=== PATIENT | male | born 1970 | race Caucasian/White ===

== ENCOUNTER 2016-12-10 18:41 | Emergency (ER) | payer SELFPAY ==
[~2016-12-10] VITALS: Wt 113.4 kg
[~2016-12-10 18:41] MED LIST: BACTRIM DS 8001 TA1 PO; BP MED PO; DAYPRO600 M1 PO; FLEXERIL10 MG PO; NAPROSYN500 MG PO; NKHM; NORCO 325 MG-51 TAB PO; PARAFON FORTE500 MG PO; TRAMADOL HCL50 MG PO; ULTRAM50 MG PO; ZYRTEC10 M2 PO
[2016-12-10 19:08] LABS: HEMATOCRIT 37.8 % (42.0-52.0); HEMOGLOBIN 12.7 g/dl (14.0-18.0); MEAN CORPUSCULAR HGB 31.9 pg (27.0-31.0); MEAN CORPUSCULAR HGB CONC 33.6 g/dl (33.0-37.0); MEAN PLATELET VOLUME 8.9 fl (9.6-12.3); PLATELET COUNT AUTOMATED 235 10*3/uL (130-400); RED BLOOD COUNT 3.98 10*6/uL (4.50-5.90); RED CELL DISTRI WIDTH 12.3 % (0-14.5); WHITE BLOOD COUNT 5.4 10*3/uL (4.8-10.8)
[2016-12-10] MEDS ORDERED: HYDRALAZINE10 MG PO (19:13)
[2016-12-10 19:23] LABS: INTERNATIONAL NORM RATIO 1.1 (2.0-3.5); PROTHROMBIN TIME 11.4 SECONDS (9.0-12.4)
[2016-12-10 19:27] LABS: ALBUMIN 3.3 gm/dl (3.1-4.5); ALKALINE PHOSPHATASE 72 U/L (45-117); BILIRUBIN, TOTAL 0.3 mg/dl (0.2-1.0); BUN 10 mg/dl (7-24); CARBON DIOXIDE 24 mmol/L (21-32); CHLORIDE 104 mmol/L (98-107); CPK 270 U/L (39-308); EST GLOM FILT AFRICAN AMERICAN > 60 ml/min; GLUCOSE 86 mg/dL (65-99); MAGNESIUM 2.2 mg/dL (1.5-2.1); POTASSIUM 3.8 mmol/L (3.5-5.1); SGOT/AST 42 IU/L (3-35); SGPT/ALT 43 U/L (12-78); SODIUM 140 mmol/L (136-145); TOTAL PROTEIN 8.2 gm/dL (6.4-8.2)
[2016-12-10 19:28] LABS: CKMB 3.9 ng/ml (0.5-3.6)
[2016-12-10 19:31] LABS: TROPONIN I < 0.015 ng/ml (<0.045)
[2016-12-10 19:32] LABS: BASOPHIL # 0.1 10*3/uL (0-0.1); BASOPHILS 1 % (0-1); LYMPHOCYTE # 1.6 10*3/uL (1.3-4.4); MONOCYTE # 0.5 10*3/uL (0.1-1.0); NEUTROPHIL # 3.3 10*3/uL (2.3-7.9); NEUTROPHILS 61 % (47-73); TOTAL CELLS COUNTED 100 #CELLS
[2016-12-10 19:33] LABS: PLATELET SUFFICIENCY NORMAL (NORMAL)
[2016-12-10] MEDS ORDERED: PROTONIX40 MG PO (21:27)
[2016-12-10] MEDS ORDERED: BENTYL10 MG PO (21:27)
== END 2016-12-10 21:30 | disposition home or self-care (01) ==
LOC: ED 18:41
PROVIDERS: Emergency Medicine
DX: K29.00 Acute gastritis without bleeding (principal); Z88.0 Allergy status to penicillin

== ENCOUNTER 2017-07-30 14:53 | Emergency (ER) | payer OTHER ==
[~2017-07-30] VITALS: Ht 190.5 cm; Wt 108.9 kg
[~2017-07-30 14:53] MED LIST changes: +BENTYL10 MG PO; +HYDRALAZINE10 MG PO; +PROTONIX40 MG PO
[2017-07-30] MEDS ORDERED: CYCLOBENZAPRINE5 M3 PO (16:54)
[2017-07-30] MEDS ORDERED: Motrin,Rufen800 MG PO (16:54)
== END 2017-07-30 19:31 | disposition home or self-care (01) ==
LOC: ED 14:53
DX: S39.012A Strain of muscle, fascia and tendon of lower back, initial encounter (principal); Z98.890 Other specified postprocedural states; Z79.899 Other long term (current) drug therapy; Z88.0 Allergy status to penicillin; X50.1XXA Overexertion from prolonged static or awkward postures, initial encounter; Y93.E9 Activity, other interior property and clothing maintenance; Y92.009 Unspecified place in unspecified non-institutional (private) residence as the place of occurrence of the external cause; Y99.9 Unspecified external cause status

== ENCOUNTER → 2018-08-05 | Outpatient (CLI) | payer BC ==
[~2018-08-05] MED LIST changes: +ANTIBIOTIC; +CEFTRIAXON2 GM/50 ML IV; +CYCLOBENZAPRINE5 M3 PO; +FISH OIL CONC1000 M1 PO; +HYDROCODONE-AC1 EAC1 PO; +Motrin,Rufen800 MG PO; +PRILOSEC20 M1 PO; +VITAMIN D5000 UNIT PO
== END | disposition home or self-care (01) ==
LOC: RAD 09:21
DX: M86.8X7 Other osteomyelitis, ankle and foot (principal)

== ENCOUNTER → 2018-08-12 | Outpatient (CLI) | payer BC | END | disposition home or self-care (01) | LOC: WOUNDCARE 04:46 | DX: L89.892 Pressure ulcer of other site, stage 2 (principal); M86.372 Chronic multifocal osteomyelitis, left ankle and foot; M86.472 Chronic osteomyelitis with draining sinus, left ankle and foot; I10 Essential (primary) hypertension; K21.9 Gastro-esophageal reflux disease without esophagitis ==

== ENCOUNTER → 2018-08-14 | Outpatient (CLI) | payer BC | END | disposition home or self-care (01) | LOC: WOUNDCARE 15:36 | DX: L97.524 Non-pressure chronic ulcer of other part of left foot with necrosis of bone (principal); M86.372 Chronic multifocal osteomyelitis, left ankle and foot; M86.472 Chronic osteomyelitis with draining sinus, left ankle and foot; I10 Essential (primary) hypertension; K21.9 Gastro-esophageal reflux disease without esophagitis ==

== ENCOUNTER 2018-08-19 12:30 | Inpatient (IN) | payer BC ==
[~2018-08-19] VITALS: Ht 190.5 cm; Wt 121.7 kg
--- NOTE | ~2018-08-19 | O ---
[place], [place] OPERATIVE NOTE NAME: TY MCKEE III [facility] #: [id number] UNIT #: [id number] ROOM: 407 DOCTOR: ALONZO MACHADO DPM BIRTHDATE: [birth year] DOS: 08/20/2018 PREOPERATIVE DIAGNOSIS: Abscess, first left toe, possible osteomyelitis. POSTOPERATIVE DIAGNOSIS: Abscess, first left toe osteomyelitis, possible osteomyelitis, pending pathology. PROCEDURES: Incision and drainage, first left toe with bone biopsy, left hallux. SURGEON: Alonzo Machado DPM. BLOCK FEEDER: Marvin Figueroa DPM. BLOOD LOSS: Approximately 2 mL. PACKING: Half inch plain packing. ANESTHESIA: LMAC. INTERIM NOTE: The patient was seen preoperatively, discussed the surgery consisting of incision and drainage with bone biopsy of the left hallux. Discussed with the patient potential risks and complications including but not limited to over correction, under correction, recurrence of deformity, possible future amputation, future need for further surgical intervention, IV antibiotics, numbness, loss of function of the toe, etc. The patient understood. All questions were answered. The consent was signed and the patient will proceed with surgical intervention. DESCRIPTION OF PROCEDURE: The patient was brought to the operating room and placed on the operating table in supine position. Anesthesia was administered per Anesthesia Department. A 4 mL of 0.5% Marcaine plain was utilized for local block. The left lower extremity was prepped and draped in usual aseptic manner. Attention was directed to ulceration of medial left hallux where there was an open seeping wound. At this time, a 15 blade was utilized to linearly incise the area, approximately 2 cm in length. The incision was deepened via sharp and blunt dissection, avoiding neurovascular structures in the area. There was serous bloody drainage noted. The incision was carried to the level of the bone at the base of the distal phalanx of the left hallux. At this time, Jamshidi needle and rongeur were utilized to obtain bone specimens for bone cultures including aerobic, anaerobic, acid fast and fungal cultures along with Gram stain and additionally bone for bone biopsy to be sent to pathology. The tissue cultures were also ordered of the same orders with a specimen of soft tissue. The area was flushed with saline. Next, the area was dressed with half inch plain packing, wet to dry dressing with 4 x 4s, Kerlix and Carlyle bandage. The patient tolerated the procedure and anesthesia well and left the OR with vital signs stable and neurovascular status intact. Blood loss was approximately 2 mL total. The patient will return to the nursing unit, resume previous orders and we will follow the patient accordingly. I discussed with the patient and his . He will probably need 6 weeks of IV antibiotics, but we will determine [place], [place] OPERATIVE NOTE NAME: RYLEE MALATY Celestino UNIT #: [id number] ROOM: 407 DOCTOR: ALONZO MACHADO DPM BIRTHDATE: [birth year] with Infectious Disease depending on results of cultures and bone biopsy. ALONZO MACHADO DPM CM:OPRECORD:OPERATIVE NOTE [id number] ALONZO MACHADO DPM 08/24/18 0716 interface
--- NOTE | ~2018-08-19 | PR ---
[place], [place] PROGRESS NOTE NAME: TY MCKEE III [facility] #: [id number] UNIT #: [id number] ROOM: 407 DOCTOR: TONO SIDHU DPM BIRTHDATE: [birth year] DOS: 08/21/2018 SUBJECTIVE: This patient is seen one day status post I and D of abscess, left great toe with bone biopsy. He states he is feeling well. He does have some mild pain in the foot. Denies fever or chills. The patient denies being diabetic. He states overall he is feeling fine. OBJECTIVE: EXTREMITIES: Dressing is removed. Pedal pulses are palpable. Hair growth is present. Skin temperature is warm. Sensation is minimally decreased. There is an I and D site with incision noted at the medial IPJ of the left great toe, it is clean and granular with no purulent drainage or malodor. There is some edema and erythema about the toe, but very minimal at this time. No increased temperature, no fluctuance or signs of remaining abscess. Wound is clean. ASSESSMENT: One day status post I and D of abscess with bone biopsy, left great toe. PLAN: Packing and dressing is changed. Await return of the cultures and pathology. The patient is doing well one day postop and he will be followed tomorrow for reevaluation. TONO SIDHU DPM CM:PNTRANS [id number] TONO SIDHU DPM 08/21/18 2225 interface
--- NOTE | ~2018-08-19 | PR ---
[place], [place] PROGRESS NOTE NAME: TY MCKEE III [facility] #: [id number] UNIT #: [id number] ROOM: 407 DOCTOR: REGINA WELLSREBECCA BIRTHDATE: [birth year] DOS: 08/22/2018 SUBJECTIVE: The patient is a 48-year-old male who is being followed for likely toe osteomyelitis. He is status post I and D and bone biopsy on 08/20/2018. Admitting cultures thus far are growing Staph aureus, which is oxacillin sensitive. The operative cultures from 08/20/2018 are also growing Staph aureus, which is oxacillin sensitive. He had a longstanding chronic ulcer. He is tolerating the antibiotics. Denies fever, chills, nausea, vomiting or diarrhea. No rash or itch. No cough, shortness of breath, no pain in the foot except with dressing changes. Dressing changes were done as per Podiatry. No fevers or chills. OBJECTIVE: VITAL SIGNS: Temperature 98.3, pulse 67, respirations 18, BP 128/84. LABORATORY DATA: No new labs today. Cultures as reviewed above. All blood cultures are sterile. CURRENT MEDICATIONS: Rocephin, Lovenox, [place], vancomycin. PHYSICAL EXAMINATION: GENERAL: A 48-year-old male, in no acute distress. HEENT: Normocephalic, no thrush. LUNGS: Clear to auscultation bilaterally. Respirations even and unlabored. HEART: Regular rhythm. No murmur appreciated. ABDOMEN: Soft, nondistended. EXTREMITIES: No edema. Left foot dressing dry and intact. Left arm PICC dressed. No phlebitis. ASSESSMENT: Left great toe osteomyelitis and septic arthritis, status post incision and drainage and bone biopsy on 08/20/2018. On 08/19/2018, cultures with MSSA as well as bone biopsy cultures with MSSA. PLAN: Continue to treat for 6 weeks with IV antibiotics, currently on vancomycin and Rocephin could possibly narrow considering the sensitivity of the Staph aureus. ADDENDUM I agree with the assessment and plan made by the nurse practitioner, Rebecca Tapia. I reviewed the labs and imaging and made the necessary changes in the note. REBECCA TAPIA CNP [place], [place] PROGRESS NOTE NAME: RYLEE MEDEIROSTY Celestino UNIT #: [id number] ROOM: 407 DOCTOR: REGINA WELLS BIRTHDATE: [birth year] Debbie MD Maite CM:PNVETO [id number] DECEMBER REGINA WELLS 08/25/18 0505 interface
--- NOTE | ~2018-08-19 | PR ---
[place], [place] PROGRESS NOTE NAME: TY MCKEE III [facility] #: [id number] UNIT #: [id number] ROOM: 407 DOCTOR: IHSAN MACHADO DPM BIRTHDATE: [birth year] DOS: 08/22/2018 SUBJECTIVE: The patient is seen postop day 2 of incision and drainage, left hallux with bone biopsy. The patient is resting comfortably in bed. OBJECTIVE: Upon removal of the dressing and packing, there are no signs of purulence. Decreased erythema. No signs of acute complication. Negative Homans sign. ASSESSMENT: Post incision and drainage with bone biopsy, left hallux. PLAN: Packing and dressing changes visit continue daily. The patient is set up for IV antibiotic treatment with Infectious Disease. The patient stated that he needs to return to work Friday. Discussed with the patient this will be against my medical advice that the patient needs to stay off his foot. Otherwise, he is at increased risk for worsening of the condition and possibly losing his toe or foot. The patient stated he understood what I was communicating to him. We will follow with the patient tomorrow. IHSAN MACHADO DPM CM:GARRY [id number] [phone] IHSAN MACHADO DPM 08/22/182031 interface
[~2018-08-19 12:30] MED LIST changes: -ANTIBIOTIC; -FISH OIL CONC1000 M1 PO; -PRILOSEC20 M1 PO; -VITAMIN D5000 UNIT PO
[2018-08-19 12:31] VITALS: BP 137/92
[2018-08-19 13:49] LABS: BASO % 0.4 % (0.0-1.0); EOS # 0.1 10*3/uL (0.0-0.4); EOS % 1.7 % (1.0-4.0); HEMATOCRIT 46.5 % (42.0-52.0); HEMOGLOBIN 15.4 g/dl (14.0-18.0); LYMPH # 1.8 10*3/uL (1.3-4.4); LYMPH % 23.5 % (27.0-41.0); MEAN CELL VOLUME 96.5 fl (80.0-94.0); MEAN CORPUSCULAR HGB CONC 33.1 g/dl (33.0-37.0); MEAN PLATELET VOLUME 9.3 fl (9.6-12.3); MONO # 0.6 10*3/uL (0.1-1.0); MONO % 7.6 % (3.0-9.0); NEUT # 5.2 10*3/uL (2.3-7.9); NEUT % 66.5 % (47.0-73.0); PLATELET COUNT AUTOMATED 239 10*3/uL (130-400); RED BLOOD COUNT 4.82 10*6/uL (4.50-5.90); RED CELL DISTRI WIDTH 11.6 % (0-14.5); WHITE BLOOD COUNT 7.8 10*3/uL (4.8-10.8)
[2018-08-19 14:05] LABS: ALBUMIN 3.6 gm/dl (3.1-4.5); ALKALINE PHOSPHATASE 76 U/L (45-117); BUN 14 mg/dl (7-24); CHLORIDE 105 mmol/L (98-107); CREATININE 1.02 mg/dL (0.70-1.30); SGOT/AST 40 IU/L (3-35); SGPT/ALT 47 U/L (12-78); SODIUM 140 mmol/L (136-145)
[2018-08-19 14:18] VITALS: BP 139/85
[2018-08-19 16:00] VITALS: BP 129/76
[2018-08-19] MEDS ORDERED: PRILOSEC20 M1 PO (17:07)
[2018-08-19] MEDS ORDERED: FISH OIL CONC1000 M1 PO (17:08)
[2018-08-19] MEDS ORDERED: ANTIBIOTIC (17:10)
[2018-08-19] MEDS ORDERED: VITAMIN D5000 UNIT PO (17:10)
[2018-08-19 20:00] VITALS: BP 126/82
[2018-08-20] VITALS (7 sets, daily range): BP systolic 117–128; BP diastolic 55–83
[2018-08-20 07:39] LABS: BASO % 0.3 % (0.0-1.0); EOS # 0.2 10*3/uL (0.0-0.4); HEMATOCRIT 44.6 % (42.0-52.0); HEMOGLOBIN 15.2 g/dl (14.0-18.0); LYMPH # 1.9 10*3/uL (1.3-4.4); LYMPH % 20.8 % (27.0-41.0); MEAN CELL VOLUME 96.3 fl (80.0-94.0); MEAN CORPUSCULAR HGB 32.8 pg (27.0-31.0); MEAN CORPUSCULAR HGB CONC 34.1 g/dl (33.0-37.0); MEAN PLATELET VOLUME 9.6 fl (9.6-12.3); MONO # 0.7 10*3/uL (0.1-1.0); MONO % 8.1 % (3.0-9.0); NEUT # 6.3 10*3/uL (2.3-7.9); NEUT % 68.5 % (47.0-73.0); PLATELET COUNT AUTOMATED 229 10*3/uL (130-400); RED BLOOD COUNT 4.63 10*6/uL (4.50-5.90); RED CELL DISTRI WIDTH 11.8 % (0-14.5); WHITE BLOOD COUNT 9.1 10*3/uL (4.8-10.8)
[2018-08-20 07:50] LABS: ALBUMIN 3.2 gm/dl (3.1-4.5); ALKALINE PHOSPHATASE 70 U/L (45-117); BUN 14 mg/dl (7-24); CHLORIDE 107 mmol/L (98-107); CREATININE 1.04 mg/dL (0.70-1.30); FREE T4 0.66 ng/dl (0.76-1.46); SGOT/AST 31 IU/L (3-35); SGPT/ALT 45 U/L (12-78); SODIUM 142 mmol/L (136-145); TOTAL PROTEIN 6.6 gm/dL (6.4-8.2)
[2018-08-20 07:57] LABS: THYROID STIM HORMONE (HS) 0.648 uIU/ml (0.358-4.75)
[2018-08-21] VITALS: BP 131/78
[2018-08-21 06:12] LABS: BASO # 0.1 10*3/uL (0.0-0.1); BASO % 0.6 % (0.0-1.0); EOS # 0.2 10*3/uL (0.0-0.4); EOS % 1.8 % (1.0-4.0); HEMATOCRIT 44.4 % (42.0-52.0); HEMOGLOBIN 14.5 g/dl (14.0-18.0); LYMPH # 2.2 10*3/uL (1.3-4.4); LYMPH % 24.8 % (27.0-41.0); MEAN CELL VOLUME 98.2 fl (80.0-94.0); MEAN CORPUSCULAR HGB 32.1 pg (27.0-31.0); MEAN CORPUSCULAR HGB CONC 32.7 g/dl (33.0-37.0); MEAN PLATELET VOLUME 9.8 fl (9.6-12.3); MONO # 0.9 10*3/uL (0.1-1.0); MONO % 10.2 % (3.0-9.0); NEUT # 5.6 10*3/uL (2.3-7.9); NEUT % 62.4 % (47.0-73.0); PLATELET COUNT AUTOMATED 215 10*3/uL (130-400); RED BLOOD COUNT 4.52 10*6/uL (4.50-5.90); RED CELL DISTRI WIDTH 11.8 % (0-14.5)
[2018-08-21 06:36] LABS: BUN 12 mg/dl (7-24); CHLORIDE 110 mmol/L (98-107); CREATININE 0.92 mg/dL (0.70-1.30); POTASSIUM 3.9 mmol/L (3.5-5.1); SODIUM 146 mmol/L (136-145)
[2018-08-21 08:00] VITALS: BP 92/60
[2018-08-21 12:00] VITALS: BP 128/78
[2018-08-21 14:04] LABS: ACID FAST SPEC PROCESSING Tissue Grinding (.)
[2018-08-21 14:04] LABS: ACID FAST SPEC PROCESSING Tissue Grinding (.)
[2018-08-21 16:00] VITALS: BP 147/89
[2018-08-21 20:00] VITALS: BP 135/76
[2018-08-22] VITALS: BP 110/62
[2018-08-22 08:00] VITALS: BP 128/84
[2018-08-22 16:00] VITALS: BP 137/87
[2018-08-22 20:00] VITALS: BP 133/86
[2018-08-23] VITALS: BP 121/70
[2018-08-23 08:00] VITALS: BP 123/88
[2018-08-23 16:00] VITALS: BP 139/93
[2018-08-24] VITALS: BP 139/89
[2018-08-24 06:33] LABS: BASO % 0.5 % (0.0-1.0); EOS # 0.2 10*3/uL (0.0-0.4); EOS % 2.3 % (1.0-4.0); HEMATOCRIT 44.6 % (42.0-52.0); HEMOGLOBIN 15.3 g/dl (14.0-18.0); LYMPH # 2.3 10*3/uL (1.3-4.4); LYMPH % 26.7 % (27.0-41.0); MEAN CELL VOLUME 94.9 fl (80.0-94.0); MEAN CORPUSCULAR HGB 32.6 pg (27.0-31.0); MEAN CORPUSCULAR HGB CONC 34.3 g/dl (33.0-37.0); MEAN PLATELET VOLUME 9.3 fl (9.6-12.3); MONO # 0.7 10*3/uL (0.1-1.0); MONO % 8.2 % (3.0-9.0); NEUT # 5.4 10*3/uL (2.3-7.9); PLATELET COUNT AUTOMATED 214 10*3/uL (130-400); RED CELL DISTRI WIDTH 11.4 % (0-14.5); WHITE BLOOD COUNT 8.8 10*3/uL (4.8-10.8)
[2018-08-24 06:49] LABS: BUN 11 mg/dl (7-24); CHLORIDE 106 mmol/L (98-107); CREATININE 0.88 mg/dL (0.70-1.30); POTASSIUM 4.1 mmol/L (3.5-5.1); SODIUM 140 mmol/L (136-145)
[2018-08-24 08:00] VITALS: BP 126/74
[2018-08-24 16:00] VITALS: BP 142/90
[2018-08-24] MEDS ORDERED: CEFTRIAXON2 GM/50 ML IV (16:25)
[2018-08-24] MEDS ORDERED: HYDROCODONE-AC1 EAC1 PO (16:25)
== END 2018-08-24 17:44 | disposition home health service (06) | DRG 478 ==
LOC: ED 12:30 → 4E 13:00 → EDHOLD 13:00 → 4E 13:04
PROVIDERS: Emergency Medicine; Podiatrist; Registered Nurse; Student in an Organized Health Care Education/Training Program
PROC: 02HV33Z Insertion of Infusion Device into Superior Vena Cava, Percutaneous Approach (ICD-10-PCS; principal; 2018-08-20)
PROC: 0QBR0ZX Excision of Left Toe Phalanx, Open Approach, Diagnostic (ICD-10-PCS; 2018-08-20)
DX: M86.8X7 Other osteomyelitis, ankle and foot (principal); M00.072 Staphylococcal arthritis, left ankle and foot; K21.9 Gastro-esophageal reflux disease without esophagitis; L97.529 Non-pressure chronic ulcer of other part of left foot with unspecified severity; R74.0 Nonspecific elevation of levels of transaminase and lactic acid dehydrogenase [LDH]; B95.61 Methicillin susceptible Staphylococcus aureus infection as the cause of diseases classified elsewhere; Z88.0 Allergy status to penicillin; Z79.899 Other long term (current) drug therapy; Z82.49 Family history of ischemic heart disease and other diseases of the circulatory system; Z83.3 Family history of diabetes mellitus

== ENCOUNTER → 2018-08-19 | Outpatient (CLI) | payer BC ==
[~2018-08-19] MED LIST changes: -CEFTRIAXON2 GM/50 ML IV; -HYDROCODONE-AC1 EAC1 PO
== END | disposition home or self-care (01) ==
LOC: WOUNDCARE 02:23
DX: L97.524 Non-pressure chronic ulcer of other part of left foot with necrosis of bone (principal); M86.372 Chronic multifocal osteomyelitis, left ankle and foot; M86.472 Chronic osteomyelitis with draining sinus, left ankle and foot; I10 Essential (primary) hypertension; K21.9 Gastro-esophageal reflux disease without esophagitis

== ENCOUNTER → 2018-08-29 | Outpatient (CLI) | payer BC ==
[~2018-08-29] MED LIST changes: +ANTIBIOTIC; +CEFTRIAXON2 GM/50 ML IV; +FISH OIL CONC1000 M1 PO; +HYDROCODONE-AC1 EAC1 PO; +PRILOSEC20 M1 PO; +VITAMIN D5000 UNIT PO
--- NOTE | ~2018-08-29 | EKG ---
[place], [place] ELECTROCARDIOGRAM REPORT NAME: TY MCKEE III UNIT #: [id number] ROOM: DOCTOR: EPIPHANY DRAFT REPORT BIRTHDATE: [birth year] [facility] Test Date: 2018-08-29 Test Time: 08:37:16 Pat Name: TY MCKEE Department: Room: Gender: Spreader Box Operator: Maribell Seth : 1970 Requested By: IHSAN MACHADO Order Number: [id number] Reading MD: Orlin France MD Measurements Intervals [place] Rate: 80 P: 66 [place]: 172 QRS: 44 QRSD: 94 T: 55 QT: 368 QTc: 425 Interpretive Statements Sinus rhythm No previous ECG available for comparison Electronically Signed On 08-31-2018 6:13:17 PST by Orlin France MD CM:EKGRPT:ELECTROCARDIOGRAM REPORT [id number] IHSAN MACHADO DPM [facility] IHSAN MACHADO DPM
== END | disposition home or self-care (01) ==
LOC: CARD 08:24
DX: M25.50 Pain in unspecified joint (principal); Z98.890 Other specified postprocedural states

== ENCOUNTER → 2018-09-01 | Outpatient (CLI) | payer BC | END | disposition home or self-care (01) | LOC: WOUNDCARE | DX: L97.524 Non-pressure chronic ulcer of other part of left foot with necrosis of bone (principal); M86.472 Chronic osteomyelitis with draining sinus, left ankle and foot; M86.372 Chronic multifocal osteomyelitis, left ankle and foot; I10 Essential (primary) hypertension; K21.9 Gastro-esophageal reflux disease without esophagitis ==

== ENCOUNTER → 2018-09-02 | Outpatient (CLI) | payer BC | END | disposition home or self-care (01) | LOC: WOUNDCARE | DX: L97.524 Non-pressure chronic ulcer of other part of left foot with necrosis of bone (principal); M86.372 Chronic multifocal osteomyelitis, left ankle and foot; M86.472 Chronic osteomyelitis with draining sinus, left ankle and foot; I10 Essential (primary) hypertension; K21.9 Gastro-esophageal reflux disease without esophagitis ==

== ENCOUNTER → 2018-09-04 | Outpatient (CLI) | payer BC | END | disposition home or self-care (01) | LOC: WOUNDCARE 01:34 | DX: L97.524 Non-pressure chronic ulcer of other part of left foot with necrosis of bone (principal); M86.472 Chronic osteomyelitis with draining sinus, left ankle and foot; M86.372 Chronic multifocal osteomyelitis, left ankle and foot; I10 Essential (primary) hypertension; K21.9 Gastro-esophageal reflux disease without esophagitis ==

== ENCOUNTER → 2018-09-11 | Outpatient (CLI) | payer BC ==
[2018-09-11 11:47] LABS: BASO # 0.1 10*3/uL (0.0-0.1); BASO % 0.6 % (0.0-1.0); EOS # 0.2 10*3/uL (0.0-0.4); HEMATOCRIT 48.5 % (42.0-52.0); HEMOGLOBIN 16.4 g/dl (14.0-18.0); LYMPH # 2.4 10*3/uL (1.3-4.4); LYMPH % 30.8 % (27.0-41.0); MEAN CELL VOLUME 95.3 fl (80.0-94.0); MEAN CORPUSCULAR HGB 32.2 pg (27.0-31.0); MEAN CORPUSCULAR HGB CONC 33.8 g/dl (33.0-37.0); MEAN PLATELET VOLUME 9.6 fl (9.6-12.3); MONO # 0.7 10*3/uL (0.1-1.0); MONO % 9.4 % (3.0-9.0); NEUT # 4.5 10*3/uL (2.3-7.9); NEUT % 56.8 % (47.0-73.0); PLATELET COUNT AUTOMATED 238 10*3/uL (130-400); RED BLOOD COUNT 5.09 10*6/uL (4.50-5.90); RED CELL DISTRI WIDTH 11.4 % (0-14.5); WHITE BLOOD COUNT 7.9 10*3/uL (4.8-10.8)
[2018-09-11 12:18] LABS: ALBUMIN 3.7 gm/dl (3.1-4.5); BILIRUBIN, DIRECT 0.1 mg/dL (0.0-0.2); TOTAL PROTEIN 7.8 gm/dL (6.4-8.2)
== END | disposition home or self-care (01) ==
LOC: WOUNDCARE 04:02 → LAB 04:02 → WOUNDCARE 08:40
PROVIDERS: Nurse Practitioner
DX: M86.9 Osteomyelitis, unspecified (principal)

== ENCOUNTER → 2018-09-16 | Outpatient (CLI) | payer BC | END | disposition home or self-care (01) | LOC: WOUNDCARE 01:46 | DX: L89.892 Pressure ulcer of other site, stage 2 (principal); I10 Essential (primary) hypertension; M86.372 Chronic multifocal osteomyelitis, left ankle and foot; M86.472 Chronic osteomyelitis with draining sinus, left ankle and foot; K21.9 Gastro-esophageal reflux disease without esophagitis ==

== ENCOUNTER → 2018-09-18 | Outpatient (CLI) | payer BC ==
[2018-09-18 14:27] LABS: BASO % 0.3 % (0.0-1.0); EOS # 0.1 10*3/uL (0.0-0.4); EOS % 1.3 % (1.0-4.0); HEMATOCRIT 49.7 % (42.0-52.0); HEMOGLOBIN 17.2 g/dl (14.0-18.0); LYMPH # 2.4 10*3/uL (1.3-4.4); LYMPH % 27.6 % (27.0-41.0); MEAN CELL VOLUME 93.6 fl (80.0-94.0); MEAN CORPUSCULAR HGB 32.4 pg (27.0-31.0); MEAN CORPUSCULAR HGB CONC 34.6 g/dl (33.0-37.0); MEAN PLATELET VOLUME 9.5 fl (9.6-12.3); MONO # 0.7 10*3/uL (0.1-1.0); MONO % 7.9 % (3.0-9.0); NEUT # 5.5 10*3/uL (2.3-7.9); NEUT % 62.3 % (47.0-73.0); PLATELET COUNT AUTOMATED 260 10*3/uL (130-400); RED BLOOD COUNT 5.31 10*6/uL (4.50-5.90); RED CELL DISTRI WIDTH 11.8 % (0-14.5); WHITE BLOOD COUNT 8.7 10*3/uL (4.8-10.8)
[2018-09-18 14:50] LABS: ALBUMIN 3.9 gm/dl (3.1-4.5); BILIRUBIN, DIRECT 0.1 mg/dL (0.0-0.2); TOTAL PROTEIN 7.8 gm/dL (6.4-8.2)
== END | disposition home or self-care (01) ==
LOC: WOUNDCARE 02:03 → LAB 02:03 → WOUNDCARE 16:21
PROVIDERS: Internal Medicine
DX: M86.9 Osteomyelitis, unspecified (principal)

== ENCOUNTER → 2018-09-21 | Outpatient (CLI) | payer BC | END | disposition home or self-care (01) | LOC: WOUNDCARE 10:22 | DX: L97.524 Non-pressure chronic ulcer of other part of left foot with necrosis of bone (principal); M86.372 Chronic multifocal osteomyelitis, left ankle and foot; M86.472 Chronic osteomyelitis with draining sinus, left ankle and foot; I10 Essential (primary) hypertension; K21.9 Gastro-esophageal reflux disease without esophagitis ==

== ENCOUNTER → 2018-09-22 | Outpatient (CLI) | payer BC ==
[2018-09-22 15:01] LABS: BASO % 0.5 % (0.0-1.0); EOS # 0.1 10*3/uL (0.0-0.4); EOS % 1.5 % (1.0-4.0); HEMATOCRIT 45.5 % (42.0-52.0); HEMOGLOBIN 15.8 g/dl (14.0-18.0); LYMPH # 2.2 10*3/uL (1.3-4.4); LYMPH % 28.6 % (27.0-41.0); MEAN CORPUSCULAR HGB 32.3 pg (27.0-31.0); MEAN CORPUSCULAR HGB CONC 34.7 g/dl (33.0-37.0); MEAN PLATELET VOLUME 9.5 fl (9.6-12.3); MONO # 0.8 10*3/uL (0.1-1.0); MONO % 10.1 % (3.0-9.0); NEUT # 4.6 10*3/uL (2.3-7.9); PLATELET COUNT AUTOMATED 219 10*3/uL (130-400); RED BLOOD COUNT 4.89 10*6/uL (4.50-5.90); RED CELL DISTRI WIDTH 11.6 % (0-14.5); WHITE BLOOD COUNT 7.8 10*3/uL (4.8-10.8)
== END | disposition home or self-care (01) ==
LOC: LAB 01:50 → WOUNDCARE 01:50
PROVIDERS: Nurse Practitioner
DX: M86.10 Other acute osteomyelitis, unspecified site (principal)

== ENCOUNTER → 2018-09-23 | Outpatient (CLI) | payer BC | END | disposition home or self-care (01) | LOC: WOUNDCARE 05:04 | DX: L97.524 Non-pressure chronic ulcer of other part of left foot with necrosis of bone (principal); M86.372 Chronic multifocal osteomyelitis, left ankle and foot; M86.472 Chronic osteomyelitis with draining sinus, left ankle and foot; I10 Essential (primary) hypertension; K21.9 Gastro-esophageal reflux disease without esophagitis ==

== ENCOUNTER → 2018-09-29 | Outpatient (CLI) | payer BC ==
[2018-09-29 11:42] LABS: BASO % 0.5 % (0.0-1.0); EOS # 0.1 10*3/uL (0.0-0.4); EOS % 1.5 % (1.0-4.0); HEMATOCRIT 48.6 % (42.0-52.0); HEMOGLOBIN 16.3 g/dl (14.0-18.0); LYMPH # 2.2 10*3/uL (1.3-4.4); LYMPH % 26.2 % (27.0-41.0); MEAN CELL VOLUME 95.5 fl (80.0-94.0); MEAN CORPUSCULAR HGB CONC 33.5 g/dl (33.0-37.0); MEAN PLATELET VOLUME 9.2 fl (9.6-12.3); MONO # 0.7 10*3/uL (0.1-1.0); NEUT # 5.1 10*3/uL (2.3-7.9); NEUT % 62.3 % (47.0-73.0); PLATELET COUNT AUTOMATED 252 10*3/uL (130-400); RED BLOOD COUNT 5.09 10*6/uL (4.50-5.90); RED CELL DISTRI WIDTH 11.7 % (0-14.5); WHITE BLOOD COUNT 8.2 10*3/uL (4.8-10.8)
== END | disposition home or self-care (01) ==
LOC: LAB 11:26
PROVIDERS: Internal Medicine
DX: M86.372 Chronic multifocal osteomyelitis, left ankle and foot (principal); M86.472 Chronic osteomyelitis with draining sinus, left ankle and foot; L97.524 Non-pressure chronic ulcer of other part of left foot with necrosis of bone; Z88.0 Allergy status to penicillin

== ENCOUNTER 2018-10-07 08:20 | Emergency (ER) | payer BC ==
[~2018-10-07] VITALS: Ht 190.5 cm; Wt 122.5 kg
== END 2018-10-07 09:33 | disposition home or self-care (01) ==
LOC: ED 08:20
DX: Z45.2 Encounter for adjustment and management of vascular access device (principal); L53.8 Other specified erythematous conditions; K21.9 Gastro-esophageal reflux disease without esophagitis; E66.9 Obesity, unspecified; Z79.899 Other long term (current) drug therapy; Z98.890 Other specified postprocedural states; Z88.0 Allergy status to penicillin

== ENCOUNTER → 2020-05-10 | Outpatient (CLI) | payer OTHER ==
[2020-05-10 16:10] LABS: HEMATOCRIT 47.6 % (42.0-52.0); MEAN CELL VOLUME 94.1 fl (80.0-94.0); MEAN CORPUSCULAR HGB 32.2 pg (27.0-31.0); MEAN CORPUSCULAR HGB CONC 34.2 g/dl (33.0-37.0); MEAN PLATELET VOLUME 9.1 fl (9.6-12.3); RED BLOOD COUNT 5.06 10*6/uL (4.50-5.90); RED CELL DISTRI WIDTH 11.6 % (0-14.5); WHITE BLOOD COUNT 9.5 10*3/uL (4.8-10.8)
[2020-05-10 16:40] LABS: ALKALINE PHOSPHATASE 86 U/L (45-117); BUN 12 mg/dl (7-24); CHLORIDE 109 mmol/L (98-107); CHOLESTEROL 234 mg/dL (<200); HDL CHOLESTEROL 35 mg/dl (40-60); LDL CHOLESTEROL 152 mg/dL (9-159); POTASSIUM 3.9 mmol/L (3.5-5.1); SGOT/AST 39 IU/L (3-35); SGPT/ALT 56 U/L (12-78); SODIUM 141 mmol/L (136-145); TOTAL PROTEIN 7.8 gm/dL (6.4-8.2); TRIGLYCERIDES 236 mg/dl (<150); VLDL CHOLESTEROL 47 mg/dL (6-40)
[2020-05-13 13:11] LABS: TESTOSTERONE FREE, (DIRECT) 5.9 pg/mL (6.8-21.5)
== END | disposition home or self-care (01) ==
LOC: LAB 15:43
PROVIDERS: ATTEND Physician Assistant
DX: F41.9 Anxiety disorder, unspecified (principal)

== ENCOUNTER → 2020-06-29 | Outpatient (CLI) | payer OTHER | END | disposition home or self-care (01) | LOC: US 08:46 | PROVIDERS: ATTEND Physician Assistant | DX: K76.0 Fatty (change of) liver, not elsewhere classified (principal); R74.9 Abnormal serum enzyme level, unspecified ==

== ENCOUNTER 2020-08-27 12:55 | Emergency (ER) | payer OTHER ==
[~2020-08-27] VITALS: Ht 190.5 cm; Wt 122.5 kg
[2020-08-27] MEDS ORDERED: IBU800 MG PO (15:00)
== END 2020-08-27 15:26 | disposition home or self-care (01) ==
LOC: ED 12:55
DX: S20.211A Contusion of right front wall of thorax, initial encounter (principal); I10 Essential (primary) hypertension; K21.9 Gastro-esophageal reflux disease without esophagitis; J45.909 Unspecified asthma, uncomplicated; Z88.0 Allergy status to penicillin; Z79.899 Other long term (current) drug therapy; Z98.890 Other specified postprocedural states; W18.09XA Striking against other object with subsequent fall, initial encounter; Y93.89 Activity, other specified; Y92.89 Other specified places as the place of occurrence of the external cause; Y99.8 Other external cause status

== ENCOUNTER 2021-01-08 08:11 | Emergency (ER) | payer BC ==
[~2021-01-08] VITALS: Ht 190.5 cm; Wt 121.6 kg
[~2021-01-08 08:11] MED LIST changes: +IBU800 MG PO
== END 2021-01-08 11:25 | disposition home or self-care (01) ==
LOC: ED 08:11
DX: S93.401A Sprain of unspecified ligament of right ankle, initial encounter (principal); Z88.0 Allergy status to penicillin; Z79.899 Other long term (current) drug therapy; Z98.890 Other specified postprocedural states; X58.XXXA Exposure to other specified factors, initial encounter; Y93.89 Activity, other specified; Y92.89 Other specified places as the place of occurrence of the external cause; Y99.8 Other external cause status

== ENCOUNTER 2021-08-20 12:44 | Emergency (ER) | payer BC ==
[~2021-08-20] VITALS: Ht 190.5 cm; Wt 122.5 kg
[2021-08-20 16:03] LABS: BASO % 0.4 % (0.0-1.0); HEMATOCRIT 46.5 % (42.0-52.0); LYMPH # 1.1 10*3/uL (1.3-4.4); LYMPH % 23.5 % (27.0-41.0); MEAN CELL VOLUME 96.9 fl (80.0-94.0); MEAN CORPUSCULAR HGB 32.9 pg (27.0-31.0); MEAN PLATELET VOLUME 9.3 fl (9.6-12.3); MONO # 0.8 10*3/uL (0.1-1.0); MONO % 15.4 % (3.0-9.0); NEUT # 2.9 10*3/uL (2.3-7.9); NEUT % 60.3 % (47.0-73.0); PLATELET COUNT AUTOMATED 171 10*3/uL (130-400); RED CELL DISTRI WIDTH 11.9 % (0-14.5); WHITE BLOOD COUNT 4.9 10*3/uL (4.8-10.8)
[2021-08-20 16:26] LABS: ALBUMIN 3.6 gm/dl (3.1-4.5); ALKALINE PHOSPHATASE 66 U/L (45-117); BUN 13 mg/dl (7-24); CHLORIDE 105 mmol/L (98-107); CREATININE 1.17 mg/dL (0.70-1.30); LIPASE 131 U/L (73-393); POTASSIUM 3.7 mmol/L (3.5-5.1); SGOT/AST 75 IU/L (3-35); SGPT/ALT 93 U/L (12-78); SODIUM 141 mmol/L (136-145); TOTAL PROTEIN 7.4 gm/dL (6.4-8.2)
[2021-08-20] MEDS ORDERED: ZITHROMAX250 MG PO (19:15)
== END 2021-08-20 19:24 | disposition home or self-care (01) ==
LOC: ED 12:44
PROVIDERS: Physician Assistant
DX: J18.9 Pneumonia, unspecified organism (principal); Z88.0 Allergy status to penicillin; Z79.899 Other long term (current) drug therapy

== ENCOUNTER 2022-11-07 07:00 | Emergency (ER) | payer BC ==
[~2022-11-07] VITALS: Ht 190.5 cm; Wt 123.8 kg
[~2022-11-07 07:00] MED LIST changes: +ZITHROMAX250 MG PO
[2022-11-07] MEDS ORDERED: CYCLOBENZAPRINE10 MG PO (07:47)
[2022-11-07] MEDS ORDERED: PREDNISONE50 MG PO (07:47)
== END 2022-11-07 08:07 | disposition home or self-care (01) ==
LOC: ED 07:00
DX: S16.1XXA Strain of muscle, fascia and tendon at neck level, initial encounter (principal); S39.012A Strain of muscle, fascia and tendon of lower back, initial encounter; K21.9 Gastro-esophageal reflux disease without esophagitis; J45.909 Unspecified asthma, uncomplicated; I10 Essential (primary) hypertension; Z98.890 Other specified postprocedural states; Z88.0 Allergy status to penicillin; W09.8XXA Fall on or from other playground equipment, initial encounter; Y93.44 Activity, trampolining; Y92.89 Other specified places as the place of occurrence of the external cause; Y99.8 Other external cause status

== ENCOUNTER 2024-03-08 00:46 | Emergency (ER) | payer BC ==
[~2024-03-08] VITALS: Ht 190.5 cm; Wt 117.0 kg
[~2024-03-08 00:46] MED LIST changes: +CYCLOBENZAPRINE10 MG PO; +PREDNISONE50 MG PO
[2024-03-08] MEDS ORDERED: Dexamethasone Sodium Phospha 20 MG/5 ML VIAL IM ONE (01:55)
[2024-03-08] MEDS ORDERED: PREDNISONE50 MG PO (01:58)
== END 2024-03-08 02:15 | disposition home or self-care (01) ==
LOC: ED 00:46
DX: M17.11 Unilateral primary osteoarthritis, right knee (principal); K21.9 Gastro-esophageal reflux disease without esophagitis; I10 Essential (primary) hypertension; J45.909 Unspecified asthma, uncomplicated; Z88.0 Allergy status to penicillin; Z98.890 Other specified postprocedural states

== ENCOUNTER 2025-03-06 15:37 | Emergency (ER) | payer BC ==
[~2025-03-06] VITALS: Ht 190.5 cm; Wt 122.5 kg
== END 2025-03-06 18:29 | disposition left against medical advice (07) ==
LOC: ED 15:37
DX: M79.602 Pain in left arm (principal); I10 Essential (primary) hypertension; Z53.21 Procedure and treatment not carried out due to patient leaving prior to being seen by health care provider

== ENCOUNTER 2025-07-29 06:10 | Emergency (ER) | payer BC ==
[~2025-07-29] VITALS: Ht 190.5 cm; Wt 122.5 kg
[2025-07-29] MEDS ORDERED: Cyclobenzaprine Hydrochlorid 10 MG TAB PO ONE (06:40)
[2025-07-29] MEDS ORDERED: METHOCARBAMOL750 M1 PO (08:02)
[2025-07-29] MEDS ORDERED: PREDNISONE20 M1 PO (08:02)
[2025-07-29] MEDS ORDERED: HYDROCODONE-AC1 EAC1 PO (08:02)
[2025-07-29] MEDS ORDERED: NAPROSYN500 MG PO (08:02)
[2025-07-29] MEDS ORDERED: HYDROmorphONE Hydrochloride 0.5 MG/0.5 ML SYRINGE IM ONE (08:40)
== END 2025-07-29 08:08 | disposition home or self-care (01) ==
LOC: ED 06:10
DX: S76.111A Strain of right quadriceps muscle, fascia and tendon, initial encounter (principal); M54.16 Radiculopathy, lumbar region; Z88.0 Allergy status to penicillin; Z98.890 Other specified postprocedural states; X50.9XXA Other and unspecified overexertion or strenuous movements or postures, initial encounter; Y93.89 Activity, other specified; Y92.89 Other specified places as the place of occurrence of the external cause; Y99.8 Other external cause status

== ENCOUNTER 2025-08-31 03:45 | Emergency (ER) | payer BC ==
[~2025-08-31] VITALS: Ht 190.5 cm; Wt 122.5 kg
[~2025-08-31 03:45] MED LIST changes: +METHOCARBAMOL750 M1 PO; +PREDNISONE20 M1 PO
[2025-08-31] MEDS ORDERED: MG-AL HYDROXIDE/SIMETICONE 30 ML UDC PO STA (04:11)
[2025-08-31] MEDS ORDERED: Dicyclomine Hydrochloride 20 MG/10 ML OSYR PO STA (04:11)
[2025-08-31 04:39] LABS: BASO # 0.0 10*3/uL (0.0-0.1); BASO % 0.5 % (0.0-1.0); EOS # 0.1 10*3/uL (0.0-0.4); EOS % 1.8 % (1.0-4.0); MEAN CELL VOLUME 97.1 fl (80.0-94.0); MEAN CORPUSCULAR HGB 33.4 pg (27.0-31.0); MEAN PLATELET VOLUME 9.0 fl (9.6-12.3); MONO # 0.7 10*3/uL (0.1-1.0); MONO % 8.6 % (3.0-9.0); NEUT # 4.8 10*3/uL (2.3-7.9); NEUT % 62.5 % (47.0-73.0); NUCLEATED RED BLOOD CELL 0.0 % (0.0-0.0); NUCLEATED RED BLOOD CELL 0.0 10*3/uL (0.0-0.0); PLATELET COUNT AUTOMATED 252 10*3/uL (130-400); RED CELL DISTRI WIDTH 11.8 % (0-14.5)
[2025-08-31 05:01] LABS: BUN 13 mg/dl (9-23)
== END 2025-08-31 06:54 | disposition home or self-care (01) ==
LOC: ED 03:45
PROVIDERS: Internal Medicine
DX: K21.9 Gastro-esophageal reflux disease without esophagitis (principal); I10 Essential (primary) hypertension; J45.909 Unspecified asthma, uncomplicated; Z98.890 Other specified postprocedural states; Z88.0 Allergy status to penicillin